=== PATIENT | male | born 1940 | race Caucasian/White ===

== ENCOUNTER → 2017-01-19 | Outpatient (CLI) | payer MEDICARE, OTHER ==
[~2017-01-19] MED LIST: ASPIR 8181 MG PO; COREG 3.125M3.125 MG PO; CRESTOR20 MG PO; FLOMAX 0.4 MG0.4 MG PO; HYDRALAZINE HCL25 MG PO; IMDUR ER TAB 3030 MG PO; NORVASC 5 MG TAB5 MG PO; PLAVIX 75 MG TA75 MG PO; PRAVASTATIN SOD80 MG PO; PROSCAR 5 MG TAB5 MG PO; SYNTHROID100 MCG PO; VITAMIN B-122500 MCG SL; VITAMIN D 11000 UNIT PO
== END ==
LOC: HEART 5 09:15
DX: R06.89 Other abnormalities of breathing (principal); R94.2 Abnormal results of pulmonary function studies; Z87.891 Personal history of nicotine dependence
CPT/HCPCS: 94060; 94729

== ENCOUNTER 2017-03-29 14:50 | Observation (INO) | payer MEDICARE, OTHER ==
[~2017-03-29] VITALS: Ht 177.8 cm; Wt 119.5 kg
[2017-03-29 15:47] LABS: HEMOGLOBIN 14.2 gm/dl (14.0-17.5); RED BLOOD COUNT 4.7 M/UL (4.20-5.50); WHITE BLOOD COUNT 5.5 K/UL (4.5-11.0)
[2017-03-30] MEDS ORDERED: SYNTHROID100 MCG PO (04:48)
[2017-03-30] MEDS ORDERED: COREG 3.125M3.125 MG PO (04:49)
[2017-03-30] MEDS ORDERED: PLAVIX 75 MG TA75 MG PO (04:49)
[2017-03-30] MEDS ORDERED: NORVASC 5 MG TAB5 MG PO (04:50)
[2017-03-30] MEDS ORDERED: HYDRALAZINE HCL25 MG PO (04:51)
[2017-03-30] MEDS ORDERED: PRAVASTATIN SOD80 MG PO (04:51)
[2017-03-30] MEDS ORDERED: PROSCAR 5 MG TAB5 MG PO (04:52)
[2017-03-30] MEDS ORDERED: FLOMAX 0.4 MG0.4 MG PO (04:52)
[2017-03-30 11:44] LABS: RED BLOOD COUNT 4.58 M/UL (4.20-5.50); WHITE BLOOD COUNT 4.9 K/UL (4.5-11.0)
--- NOTE | 2017-03-30 17:59 | NUR ---
CURRENTLY PATIENT IS RESTING IN HIS ROOM WITH NO C/O PAIN. FAMILY AT BEDSIDE. WILL CONTINUE TO MONITOR.
[2017-03-31] MEDS ORDERED: CRESTOR20 MG PO (11:25)
[2017-03-31] MEDS ORDERED: IMDUR ER TAB 3030 MG PO (11:26)
--- NOTE | 2017-03-31 12:05 | NUR ---
DISCHARGE INSTRUCTIONS AND PRESCRIPTIONS WERE COMPLETED WITH A VERBAL UNDERSTANDING STATED BY THE PATIENT AND HIS . IV WAS REMOVED, PRESSURE HELD UNTIL BLEEDING STOPED AND TAPE WAS APPLIED WITH A 2X2.
[2017-07-31] MEDS ORDERED: VITAMIN B-122500 MCG SL (06:57)
[2017-07-31] MEDS ORDERED: VITAMIN D 11000 UNIT PO (06:57)
[2017-07-31] MEDS ORDERED: ASPIR 8181 MG PO (06:58)
== END 2017-03-31 12:16 | disposition home or self-care (01) ==
LOC: ER1 14:50 → ZEROF 21:04 → MED SURG 4 03-30 01:14
PROVIDERS: Emergency Medicine; Internal Medicine; ADMIT Family Medicine
DX: I24.9 Acute ischemic heart disease, unspecified (principal); R07.9 Chest pain, unspecified; I25.10 Atherosclerotic heart disease of native coronary artery without angina pectoris; E78.5 Hyperlipidemia, unspecified; I12.9 Hypertensive chronic kidney disease with stage 1 through stage 4 chronic kidney disease, or unspecified chronic kidney disease; N18.3 Chronic kidney disease, stage 3 (moderate); E11.22 Type 2 diabetes mellitus with diabetic chronic kidney disease; E03.9 Hypothyroidism, unspecified; Z79.891 Long term (current) use of opiate analgesic; Z79.899 Other long term (current) drug therapy; Z90.49 Acquired absence of other specified parts of digestive tract; Z95.5 Presence of coronary angioplasty implant and graft; Z88.8 Allergy status to other drugs, medicaments and biological substances; N40.0 Benign prostatic hyperplasia without lower urinary tract symptoms; Z98.61 Coronary angioplasty status; I25.2 Old myocardial infarction; Z87.891 Personal history of nicotine dependence
CPT/HCPCS: ECHO; 36415; 71020; 78452; 80048; 80053; 80061; 81001; 82550; 82553; 82962; 83605; 83690; 83874; 83880; 84484; 85025; 85027; 85610; 85730; 87040; 87086; 93005; 93017; 93306; 99285; A9502; G0378; J2785

== ENCOUNTER → 2021-01-16 | Outpatient (CLI) | payer MEDICARE, OTHER | LOC: EXRD 13:00 | DX: N18.30 Chronic kidney disease, stage 3 unspecified (principal); N28.1 Cyst of kidney, acquired | CPT/HCPCS: 76775 ==